=== PATIENT | male | born 1985 | race Caucasian/White ===

== ENCOUNTER 2018-01-24 04:07 | Inpatient (IN) ==
[2018-01-24] MEDS ORDERED: Aluminum/Magnesium/Simethacone Susp 30 ML UDC PO PRN (11:33)
[2018-01-24] MEDS ORDERED: Bisacodyl 10 MG Supp RECTAL PRN (11:33)
[2018-01-24] MEDS ORDERED: Acetaminophen 325 MG Tablet PO PRN (11:34)
[2018-01-24] MEDS ORDERED: Senna/Docusate Sodium 8.6/50 MG Tablet PO PRN (11:34)
--- NOTE | 2018-01-24 11:39 | P.HPPSY ---
Provisional Diagnosis Admission Date: January 24, 2018 08:16 [place] I.: Adjustment disorder with depressed mood Competence Certification of Person's Competence To Provide Express and Informed Consent I have personally examined Kenrick Bermudez, a person being served at [facility] on, January 24, 2018 1138. Express and informed consent means consent voluntarily given in writing, by a competent person, after sufficient explanation and disclosure of the subject matter involved to enable the person to make a knowing and willful decision without any element of force, fraud, deceit, duress, or other form of constraint or coercion. This person is 18 years of age or older, is not now known to be incompetent to consent to treatment with a guardian advocate, and does not have a health care surrogate or proxy currently making medical treatment decisions. I have found this person to be one of the following: [xxx] Competent to provide express and informed consent, as defined above, for voluntary admission to this facility and is competent to provide express and informed consent for treatment. He/she has the consistent capacity to make well reasoned, willful, and knowing decisions concerning his or her medical or mental health treatment. The person fully and consistently understands the purpose of the admission for examination/placement and is fully capable of personally exercising all rights assured under [place] Incompetent to provide express and informed consent to voluntary admission, and this is incompetent to provide express and informed consent to treatment. The person must be transferred to involuntary status and a petition for a guardian advocate filed with the Circuit Court. [] Refusing to provide express and informed consent to voluntary admission but is competent to provide express and informed consent for treatment. The person must be discharged or transferred to involuntary status. Form shall be completed within 24 hours of a person's arrival at the receiving facility and filed in the clinical record of each person: 1. Admitted on a voluntary basis 2. Permitted to provide express and informed consent to his/her own treatment 3. Allowed to transfer from involuntary to voluntary status 4. Prior to permitting a person to consent to his or her own treatment after having been previously found incompetent to consent to treatment. History of Present Illness Capacity: Has capacity History of Present Illness: Patient is a 32-year-old man, single, homeless, unemployed, currently staying with his parents, with a past psychiatric history of depression, ADD as per chart, one previous psychiatric admission in 2006, 1 previous suicide attempt, with a polysubstance use history, who presented to the ED at a local facility due to suicidal ideations with plan to shoot himself with a pellet rifle which patient was put under Brasher act and transferred to this facility for further evaluation and management. Patient was found in blade on unit noted B, cooperative, seen with nurse. Patient states that a few days ago he had contemplated suicide which she had mentioned to his mother and had been taken to the local hospital as stated above. Patient reports having had suicide ideation for the past 2 months, but reports having been depressed for years and has been worsening "in waves". Patient reports decreased appetite, sleep and concentration with no change in energy, denying any feelings of guilt but is feeling helpless and hopeless. Patient also mentions having auditory hallucination 2 days ago and at times making bizarre statements such as "I believe in telepathy". Patient denies any visual hallucinations and denies any paranoid delusions and continues with suicide ideations at this time. Patient reports feels like a burden to his parents, states that his stressors include not having a job, not having a place to live. Patient noted be tearful toward end of interview stating he wanted to get his life back in order and feel better. Family psychiatric history: Patient reports uncle committed suicide Past psychiatric history: Patient unclear of diagnoses but as per chart history of depression and ADD. Reports one previous psychiatric admission in 2006 for suicidal ideation, reports one remote suicide attempt as a teenager, no current outpatient provider, reports history of self-injurious behavior via burning as a teenager, denies any history of abuse. Past medical history: Denies Allergies: Jamar Substance use history: Recently quit tobacco use, alcohol use is rarely last time being months ago, patient also reports rarely using marijuana use but has a polysubstance use history of ecstasy, amphetamines and other illegal drugs which he has stopped using over a year ago. Social history: Homeless, single, no children, unemployed, currently staying with his parents since his unemployment 1 month ago. Patient reports having been in less than 6 months ago. No legal history, has education is 10th grade but did achieve his GED. Patient was born in [place] and raised in both [place] and [place]. - Inpatient Certification I certify that the inpatient services were ordered in accordance with Medicare regulations governing the order. This includes certification that hospital inpatient services are reasonable and necessary and in the case of services not specified as inpatient-only under 42 CFR 419.22(n), that they are appropriately provided as inpatient services in accordance to with the 2-midnight benchmark under 43 CFR 412.3(e) I certify that inpatient psychiatric hospital services are medically necessary. Evaluation and treatment and/or diagnostic testing are expected to improve the patient's condition. The patient needs on a daily basis, active treatment furnished directly by or requiring the supervision of inpatient psychiatric facility personnel. Estimated Total Length of Stay (Days): 7 Plans for Post Hospital Care: Not yet determined Review of Systems All other systems reviewed negative except as stated in HPI PMFSH - History History Provided By: Patient, Medical Record Quality Measures - Psychiatric History Psychological trauma history: Denies Violence risk to others in the last 6 months: Low Violence risk to self in the last 6 months: Elevated - Substance Abuse History Drug or alcohol use in the past 12 months: See HPI - Patient Strengths Patient's strengths (minimum of 2): Verbal and communicative Medications and Allergies Active Medications: Active Medications Acetaminophen (Tylenol) 650 mg PO Q4H PRN PRN Reason: Pain 1-5 or Temp >101F Al Hydrox/Mg Hydrox/Simethicone (Mag-Al Plus Susp Liq) 30 ml PO Q6H PRN PRN Reason: DYSPEPSIA Al Hydroxide/Mg Hydroxide (Milk Of Magnesia Liq) 30 ml PO Q12H PRN PRN Reason: Mild Constipation Bisacodyl (Dulcolax Supp) 10 mg RECTAL DAILY PRN PRN Reason: SEVERE CONSITIPATION Diphenhydramine HCl (Benadryl) 50 mg PO HS PRN PRN Reason: INSMONIA Diphenhydramine HCl (Benadryl Inj) 50 mg IM HS PRN PRN Reason: INSOMNIA Hydroxyzine HCl (Atarax) 50 mg PO Q6H PRN PRN Reason: ANXIETY Lactulose (Lactulose Liq) 30 ml PO DAILY PRN PRN Reason: SEVERE CONSITIPATION Nicotine Polacrilex (Nicotine Gum) 4 mg CHEW Q2H PRN PRN Reason: CRAVING Senna/Docusate Sodium (Coni-Colace) 1 tab PO BID PRN PRN Reason: CONSTIPATION Sennosides (Senokot) 17.2 mg PO Q12H PRN PRN Reason: Moderate Constipation Allergies Allergy/AdvReac Type Severity Reaction Status Date / Time ziprasidone [From Geodon] Allergy Seizures Verified 01/24/18 08:30 Exam Vital signs: Vital Signs 01/24/18 08:37 Temperature 98 F Blood Pressure 118/83 Intake & Output 01/23/18 01/24/18 01/24/18 18:59 06:59 18:59 Weight 72.1 kg Other: Weight On Admission 72.1 kg - Constitutional no acute distress, cooperative Mental Status Examination Appearance: Appropriate Consciousness: Alert Orientation: Person, Place, Date/Time Motor Activity: Normal gait Speech: Unremarkable Language: Adequate Fund of Knowledge: Inadequate Attention and Concentration: Adequate Memory: Unremarkable Mood: Sad Affect: Sad Thought Process & Associations: Intact, Linear Thought Content: Hallucinations Hallucination Type: Auditory Delusion Type: None Suicidal Ideation: Yes Suicidal Plan: No Suicidal Intention: No Homicidal Ideation: No Homicidal Plan: No Homicidal Intention: No Insight: Fair Judgment: Impulsive Assessment and Plan - Assessment (1) Adjustment disorder with depressed mood Code(s): F43.21 - Adjustment disorder with depressed mood Status: Acute - Plan Plan: Estimated LOS: [] days Patient is a 32-year-old man who carries a diagnosis of depression, polysubstance use disorder, with previous psychiatric admission, one remote suicide attempt, currently endorsing depressive symptoms along with suicide ideation with plan to shoot himself with a pellet rifle in the context of depressive symptoms and psychosocial stressors which patient requires inpatient psychiatric level care for stabilization for safety. Patient has capacity to consent for treatment and will be admitted under voluntary admission at this time. Patient to start quetiapine 25 g p.o. twice daily with upper titration for stabilization. We will monitor mood and behavior. Social work intervention for psychosocial assessment. Discharge planning in progress. Justification for Continued Inpatient Stay: At risk of further decompensation a low level of care.
[2018-01-24] MEDS: QUEtiapine 25 MG Tablet PO SCH ×2 (13:34→20:23)
[2018-01-25 10:38] LABS: Alanine Aminotransferase 14 U/L (12-78); Albumin 3.9 g/dL (3.4-5.0); Anion Gap 0 meq/L (5-15); Aspartate Aminotransferase 14 U/L (15-37); Blood Urea Nitrogen 12 mg/dL (7-18); Calcium 9.3 mg/dL (8.5-10.1); Carbon Dioxide 30.7 meq/L (21.0-32.0); Chloride 103 meq/L (98-107); Cholesterol 271 mg/dL (120-200); Glomerular Filtration Rate 75 mL/min (>89); Glucose,Random 59 mg/dL (74-106); Potassium 4.5 meq/L (3.5-5.1); Sodium 134 meq/L (136-145); Triglycerides 328 mg/dL (42-150)
[2018-01-25 10:40] LABS: Alkaline Phosphatase 93 U/L (45-117); Chol/HDL Ratio 8.41 Ratio; HDL Cholesterol 32.2 mg/dL (40.0-60.0); LDL Cholesterol,Calculated 173 mg/dL (0-99)
[2018-01-25] MEDS: QUEtiapine 25 MG Tablet PO SCH ×2 (10:55→20:24)
--- NOTE | 2018-01-25 12:25 | ECG ---
Date Performed: 01/25/2018 Time Performed: 11:04:58 PTAGE: 32 years EKG: Sinus rhythm NORMAL ECG NO PREVIOUS TRACING DOCTOR: Shabnam James Interpretating Date/Time 01/25/2018 12:23:51
[2018-01-25 13:12] LABS: Hemoglobin A1c 5.8 % (4.3-6.0)
--- NOTE | 2018-01-25 18:19 | P.PNPSY ---
Subjective Remarks: Reviewed electronic medical records and discussed case with staff. Follow-up was conducted in the day room with Amee DESIR present. His nurse reports that he has been compliant with his medications and has had no B behavioral disturbances. The patient says that he has been sleeping well and has a good appetite. He said his mood varies and reports that he is "anxious about my future". Mental Status Examination Appearance: Appropriate Consciousness: Alert Orientation: Person, Place, Date/Time Motor Activity: Normal gait Speech: Unremarkable Language: Adequate Fund of Knowledge: Inadequate Attention and Concentration: Adequate Memory: Unremarkable Mood: Sad Affect: Sad Thought Process & Associations: Intact, Linear Thought Content: Hallucinations Hallucination Type: Auditory Delusion Type: None Suicidal Ideation: Yes Suicidal Plan: No Suicidal Intention: No Homicidal Ideation: No Homicidal Plan: No Homicidal Intention: No Insight: Fair Judgment: Impulsive Assessment and Plan - Assessment (1) Adjustment disorder with depressed mood Code(s): F43.21 - Adjustment disorder with depressed mood Status: Acute - Plan Plan: Patient will be reevaluated tomorrow by the attending psychiatrist. Continue with current treatment plan. Justification for Continued Inpatient Stay: Moving this patient to a less restrictive environment would likely result in decompensation.
--- NOTE | 2018-01-25 18:40 | P.PNPSY ---
Mental Status Examination Appearance: Appropriate Consciousness: Alert Orientation: Person, Place, Date/Time Motor Activity: Normal gait Speech: Unremarkable Language: Adequate Fund of Knowledge: Inadequate Attention and Concentration: Adequate Memory: Unremarkable Mood: Sad Affect: Sad Thought Process & Associations: Intact, Linear Thought Content: Hallucinations Hallucination Type: Auditory Delusion Type: None Suicidal Ideation: Yes Suicidal Plan: No Suicidal Intention: No Homicidal Ideation: No Homicidal Plan: No Homicidal Intention: No Insight: Fair Judgment: Impulsive Assessment and Plan - Assessment (1) Adjustment disorder with depressed mood Code(s): F43.21 - Adjustment disorder with depressed mood Status: Acute
[2018-01-26] MEDS: QUEtiapine 25 MG Tablet PO SCH ×2 (08:18→20:30)
--- NOTE | 2018-01-26 10:18 | P.PNPSY ---
Subjective Remarks: Patient seen and examined with nurse. Chart reviewed. Patient transferred from [facility] with suicidal ideation with plan to shoot himself. Documentation from outside hospital reviewed. On my examination today , the patient says that he has been having thoughts of shooting himself with his pellet gun for the last week or so. He says that he has been feeling depressed secondary to loss of his job and having to move back in with his parents. He has had suicidal ideation in the past. He served in the [employer] for a little over 5 months but received a general discharge after a hip fracture was discovered. This is a source of some consternation from him as he reportedly does not receive any veterans benefits as he was not in the [employer] for at least 6 months. He denies any suicidal ideation presently but remains depressed. He denies any audiovisual hallucinations. He does articulate believes in telepathy, which belief he also articulated to the nursing staff. No reported side effects from medications. No physical complaints. Vital Signs Temp Pulse Resp BP Pulse Ox 01/26/18 15:34 98.1 F 114 H 18 115/64 100 01/26/18 05:58 97.6 F 85 16 97/66 L 98 01/25/18 18:17 97.1 F L 109 H 17 108/72 98 Laboratory Results - last 72 hr 01/25/18 01/25/18 09:00 09:00 Sodium 134 L Potassium 4.5 Chloride 103 Carbon Dioxide 30.7 Anion Gap 0 L BUN 12 Creatinine 1.13 Estimated GFR 75 L Random Glucose 59 L Hemoglobin A1c 5.8 Calcium 9.3 Total Bilirubin 0.4 AST 14 L ALT 14 Alkaline Phosphatase 93 Total Protein 8.0 Albumin 3.9 Triglycerides 328 H Cholesterol 271 H LDL Cholesterol, Calc 173 H HDL Cholesterol 32.2 L Cholesterol/HDL Ratio 8.41 Labs from outside hospital reviewed. Hyponatremia noted at outside hospital has improved. Patient also had a mild leukocytosis. QTc was prolonged at outside hospital but EKG obtained here at [place] reveals normal sinus rhythm with a QTC of 421 ms, not prolonged. Toxicology at outside hospital was negative. Review of Systems All other systems reviewed negative except as stated in HPI Mental Status Examination Appearance: Appropriate Consciousness: Alert Orientation: Person, Place, Date/Time Motor Activity: Normal gait, Other (No motor abnormalities noted.) Speech: Unremarkable Language: Adequate Fund of Knowledge: Inadequate Attention and Concentration: Adequate Memory: Unremarkable Mood: Sad Affect: Sad Thought Process & Associations: Intact, Linear Thought Content: Bizarre thinking Hallucination Type: None Delusion Type: None Suicidal Ideation: No Suicidal Plan: No Suicidal Intention: No Homicidal Ideation: No Homicidal Plan: No Homicidal Intention: No Insight: Fair Judgment: Impulsive Assessment and Plan - Assessment (1) Adjustment disorder with depressed mood Code(s): F43.21 - Adjustment disorder with depressed mood Status: Acute - Plan Plan: Titrate Seroquel to 25 mg in the morning and 50 mg at bedtime for mood stabilization. I will check a CBC to follow up on the patient's leukocytosis at outside hospital. Continue to monitor on the inpatient unit. Counselor to evaluate and call for collateral. Continue other medications and care as ordered. I did notify the patient of my absence on Friday and Friday of this week with planned return . Justification for Continued Inpatient Stay: Medication changes. Monitoring for impairment in safety. Discharge Planning: Pending psychiatric stabilization. Request Healthcare Surrogate/Guardian Advocate?: No
[2018-01-26 17:20] LABS: Baso % (Auto) 0.6 % (0.0-2.0); Eos # (Auto) 0.4 th/mm3 (0.0-0.4); Eos % (Auto) 4.7 % (0.0-4.0); Hematocrit 43.3 % (39.0-51.0); Hemoglobin 14.6 gm/dL (13.0-17.0); Lymph # (Auto) 3.3 th/mm3 (1.0-4.8); Lymph % (Auto) 44.2 % (9.0-44.0); Mean Corpuscular HGB Conc 33.7 % (32.0-36.0); Mean Corpuscular Hemoglobin 29.7 pg (27.0-34.0); Mean Corpuscular Volume 88.1 fL (80.0-100.0); Mean Platelet Volume 9.1 fL (7.0-11.0); Mono # (Auto) 0.5 th/mm3 (0.0-0.9); Mono % (Auto) 6.1 % (0.0-8.0); Neut # (Auto) 3.4 th/mm3 (1.8-7.7); Neut % (Auto) 44.4 % (16.0-70.0); Platelet Count 196 th/mm3 (150-450); Red Blood Count 4.91 mil/mm3 (4.50-5.90); Red Cell Distribution Width 15.1 % (11.6-17.2); White Blood Count 7.6 th/mm3 (4.0-11.0)
[2018-01-27] MEDS: QUEtiapine 25 MG Tablet PO SCH ×2 (08:54→20:30)
--- NOTE | 2018-01-27 17:18 | P.PNPSY ---
Subjective Remarks: Reviewed electronic medical records and discussed case with staff. Follow-up was conducted in the hallway with THANG Saleem present. Patient reports that he sleeping and eating well. He reports that his mood is elevated. He denies any current suicidal or homicidal ideation. He still expresses some anxiety over thinking about "getting my life back on track". Mental Status Examination Appearance: Appropriate Consciousness: Alert Orientation: Person, Place, Date/Time Motor Activity: Normal gait, Other (No motor abnormalities noted.) Speech: Unremarkable Language: Adequate Fund of Knowledge: Inadequate Attention and Concentration: Adequate Memory: Unremarkable Mood: Sad Affect: Sad Thought Process & Associations: Intact, Linear Thought Content: Bizarre thinking Hallucination Type: None Delusion Type: None Suicidal Ideation: No Suicidal Plan: No Suicidal Intention: No Homicidal Ideation: No Homicidal Plan: No Homicidal Intention: No Insight: Fair Judgment: Impulsive Assessment and Plan - Assessment (1) Adjustment disorder with depressed mood Code(s): F43.21 - Adjustment disorder with depressed mood Status: Acute - Plan Plan: Patient will be reevaluated by the attending psychiatrist. Continue with current treatment plan. Justification for Continued Inpatient Stay: Moving this patient to a less restrictive environment would likely result in decompensation. Request Healthcare Surrogate/Guardian Advocate?: No
[2018-01-28] MEDS: QUEtiapine 25 MG Tablet PO SCH ×2 (08:04→21:09)
--- NOTE | 2018-01-28 13:22 | P.PNPSY ---
Subjective Remarks: Patient seen today in his room with nurse Reggie, chart reviewed, patient compliant medicine. Patient alert oriented calm cooperative today and just take a shower. Today denies suicidality homicidality voice or visions. Feels medication is working. States he may have a job interview this weekend. He hopes he can be discharged soon. Any questions how he will be getting back to his own home area which is about 4 hours from here. We will have counselor work with him related to that Review of Systems All other systems reviewed negative except as stated in HPI Mental Status Examination Appearance: Appropriate Consciousness: Alert Orientation: Person, Place, Date/Time Motor Activity: Normal gait, Other (No motor abnormalities noted.) Speech: Unremarkable Language: Adequate Fund of Knowledge: Inadequate Attention and Concentration: Adequate Memory: Unremarkable Mood: Sad Affect: Other (Slight decreased range and intensity) Thought Process & Associations: Intact, Linear Thought Content: Bizarre thinking (Improving) Hallucination Type: None Delusion Type: None Suicidal Ideation: No Suicidal Plan: No Suicidal Intention: No Homicidal Ideation: No Homicidal Plan: No Homicidal Intention: No Insight: Fair Judgment: Impulsive Assessment and Plan - Assessment (1) Adjustment disorder with depressed mood Code(s): F43.21 - Adjustment disorder with depressed mood Status: Acute - Plan Plan: Patient's mood is improving. He shows no signs of psychosis at this time. Compliant medication. Justification for Continued Inpatient Stay: At this time patient would decompensate a place to a lower level of care Discharge Planning: To be determined probably home with family Request Healthcare Surrogate/Guardian Advocate?: No
[2018-01-28 20:29] VITALS: RESP 18
[2018-01-29 05:24] VITALS: O2SAT 97
[2018-01-29] MEDS: QUEtiapine 25 MG Tablet PO SCH ×2 (09:33→21:32)
--- NOTE | 2018-01-29 13:11 | P.DSPSY ---
Psychiatry Discharge Summary Advance Directives: No - Admission Admission Date: January 24, 2018 08:16 Brief History: Patient is a 32-year-old man, single, homeless, unemployed, currently staying with his parents, with a past psychiatric history of depression, ADD as per chart, one previous psychiatric admission in 2006, 1 previous suicide attempt, with a polysubstance use history, who presented to the ED at a local facility due to suicidal ideations with plan to shoot himself with a pellet rifle which patient was put under Bras[place] act and transferred to this facility for further evaluation and management. Patient was found in blade on unit noted B, cooperative, seen with nurse. Patient states that a few days ago he had contemplated suicide which she had mentioned to his mother and had been taken to the local hospital as stated above. Patient reports having had suicide ideation for the past 2 months, but reports having been depressed for years and has been worsening "in waves". Patient reports decreased appetite, sleep and concentration with no change in energy, denying any feelings of guilt but is feeling helpless and hopeless. Patient also mentions having auditory hallucination 2 days ago and at times making bizarre statements such as "I believe in telepathy". Patient denies any visual hallucinations and denies any paranoid delusions and continues with suicide ideations at this time. Patient reports feels like a burden to his parents, states that his stressors include not having a job, not having a place to live. Patient noted be tearful toward end of interview stating he wanted to get his life back in order and feel better. Family psychiatric history: Patient reports uncle committed suicide Past psychiatric history: Patient unclear of diagnoses but as per chart history of depression and ADD. Reports one previous psychiatric admission in 2006 for suicidal ideation, reports one remote suicide attempt as a teenager, no current outpatient provider, reports history of self-injurious behavior via burning as a teenager, denies any history of abuse. Past medical history: Denies Allergies: Jamar Substance use history: Recently quit tobacco use, alcohol use is rarely last time being months ago, patient also reports rarely using marijuana use but has a polysubstance use history of ecstasy, amphetamines and other illegal drugs which he has stopped using over a year ago. Social history: Homeless, single, no children, unemployed, currently staying with his parents since his unemployment 1 month ago. Patient reports having been in less than 6 months ago. No legal history, has education is 10th grade but did achieve his GED. Patient was born in [place] and raised in both [place] and [place]. Tobacco Use In Past 30 Days: Yes How Often Do You Have a Drink Containing Alcohol: Never Mental Status Examination Appearance: Appropriate Consciousness: Alert Orientation: Person, Place, Date/Time Motor Activity: Normal gait, Other (No motor abnormalities noted.) Speech: Unremarkable Language: Adequate Fund of Knowledge: Inadequate Attention and Concentration: Adequate Memory: Unremarkable Mood: Sad Affect: Other (Slight decreased range and intensity) Thought Process & Associations: Intact, Linear Thought Content: Bizarre thinking (Improving) Hallucination Type: None Delusion Type: None Suicidal Ideation: No Suicidal Plan: No Suicidal Intention: No Homicidal Ideation: No Homicidal Plan: No Homicidal Intention: No Insight: Fair Judgment: Impulsive Discharge/Advance Care Plan - Results Vital Signs: Last Vital Signs Temp 98 F 01/29/18 05:24 Pulse 80 01/29/18 05:24 Resp 18 01/29/18 05:24 BP 104/59 L 01/29/18 05:24 Pulse Ox 97 01/29/18 05:24 Lab Results: Laboratory Results Hemoglobin A1c 5.8 % (4.3-6.0) 01/25/18 09:00 Triglycerides 328 mg/dL (42-150) H 01/25/18 09:00 Cholesterol 271 mg/dL (120-200) H 01/25/18 09:00 LDL Cholesterol, Calc 173 mg/dL (0-99) H 01/25/18 09:00 HDL Cholesterol 32.2 mg/dL (40.0-60.0) L 01/25/18 09:00 - Discharge Care Plan Goals to Promote Your Health: * To prevent worsening of your condition and complications * To maintain your health at the optimal level Directions to Meet Your Goals: Take your medications as prescribed Follow your dietary instruction Follow activity as directed Keep your appointments as scheduled Take your immunizations and boosters as scheduled If your symptoms worsen call your PCP, if no PCP go to Urgent Care Center or Emergency Room For 11/11 questions related to your inpatient stay or results of tests pending at discharge, please contact Dr. Félix Medley MD at [phone] Smoking is Dangerous to Your Health. Avoid second hand smoking
--- NOTE | 2018-01-29 14:36 | P.PNPSY ---
Subjective Remarks: Patient seen and examined. Chart reviewed. Case discussed with nursing staff. No behavioral issues noted overnight. Case discussed with counselor who has confirmed that patient's mother has secured the home environment including the firearm. On my examination today, the patient says that he is feeling much improved. He would like to be discharged today or if not today, tomorrow. He denies any suicidal or homicidal ideation. Denies any audiovisual hallucinations. Denies any command auditory hallucinations. Mood is improved. Sleep is improved. He denies side effects from medications. No physical complaints. Vital Signs Temp Pulse Resp BP Pulse Ox 01/29/18 05:24 98 F 80 18 104/59 L 97 01/28/18 18:00 97.5 F L 92 H 18 126/91 H 99 Intake and Output 01/29/18 01/29/18 01/29/18 06:59 14:59 22:59 Other: Weight 97.2 kg Labs reviewed. No new labs. Review of Systems All other systems reviewed negative except as stated in HPI Mental Status Examination Appearance: Appropriate Consciousness: Alert Orientation: x4 Motor Activity: Normal gait, Other (No abnormal motor movements noted) Speech: Unremarkable Language: Adequate Fund of Knowledge: Adequate Attention and Concentration: Adequate Memory: Unremarkable Mood: Appropriate Affect: Appropriate Thought Process & Associations: Intact, Logical, Linear Thought Content: Appropriate Hallucination Type: None Delusion Type: None Suicidal Ideation: No Suicidal Plan: No Suicidal Intention: No Homicidal Ideation: No Homicidal Plan: No Homicidal Intention: No Mental Status Exam Remarks: Insight and judgment are fair Assessment and Plan - Assessment (1) Adjustment disorder with depressed mood Code(s): F43.21 - Adjustment disorder with depressed mood Status: Acute - Plan Plan: Psychiatric condition improved. Continue Seroquel as ordered. Continue to monitor on the inpatient unit. Continue other medications and care as ordered. Justification for Continued Inpatient Stay: Final discharge planning. Discharge Planning: Anticipate discharge tomorrow morning. Because of the distance from which the patient was transferred, counselor informs me we are unable to transport the patient back to his home county today. Transportation has been arranged for tomorrow morning. Request Healthcare Surrogate/Guardian Advocate?: No
[2018-01-30 06:14] VITALS: BP 109/56; PULSE 81; TEMP 97.5
--- NOTE | 2018-01-30 08:31 | P.DSPSY ---
Psychiatry Discharge Summary Inpatient Psychiatric care?: Yes Advance Directives: No Mental Health Advance Directive: No Health Care Proxy: No - Admission Admission Date: January 24, 2018 08:16 - Admission Diagnosis (1) Adjustment disorder with depressed mood Code(s): F43.21 - Adjustment disorder with depressed mood Brief History: Patient is a 32-year-old man, single, homeless, unemployed, currently staying with his parents, with a past psychiatric history of depression, ADD as per chart, one previous psychiatric admission in 2006, 1 previous suicide attempt, with a polysubstance use history, who presented to the ED at a local facility due to suicidal ideations with plan to shoot himself with a pellet rifle which patient was put under Barsher act and transferred to this facility for further evaluation and management. Patient was found in blade on unit noted B, cooperative, seen with nurse. Patient states that a few days ago he had contemplated suicide which she had mentioned to his mother and had been taken to the local hospital as stated above. Patient reports having had suicide ideation for the past 2 months, but reports having been depressed for years and has been worsening "in waves". Patient reports decreased appetite, sleep and concentration with no change in energy, denying any feelings of guilt but is feeling helpless and hopeless. Patient also mentions having auditory hallucination 2 days ago and at times making bizarre statements such as "I believe in telepathy". Patient denies any visual hallucinations and denies any paranoid delusions and continues with suicide ideations at this time. Patient reports feels like a burden to his parents, states that his stressors include not having a job, not having a place to live. Patient noted be tearful toward end of interview stating he wanted to get his life back in order and feel better. Family psychiatric history: Patient reports uncle committed suicide Tobacco Use In Past 30 Days: Yes How Often Do You Have a Drink Containing Alcohol: Never Hospital Course: Patient was admitted to a locked, inpatient psychiatric unit. Appropriate precautions were in place throughout patient's hospital stay. Patient was seen and examined on the unit by psychiatry and also visited by counselor. Psychotropic medications were adjusted. Patient tolerated medication changes well without side effects. Patient had improvement in presenting psychiatric symptomatology during the course of his hospital stay. There was no evidence of any suicidality or homicidality while the patient was on the inpatient unit. There was no evidence of self-care deficit. Collateral information was obtained by the counselor from the patient's mother, and patient's mother has secured the home environment of potential means of harm to self/others per the counselor. On the day of discharge: Patient seen and examined. Chart reviewed. Case discussed with nursing staff. No behavioral issues overnight. On my examination today, the patient is requesting discharge from the inpatient psychiatric unit today. He tells me that he "feel[s] great." I can elicit no depressive or hypomanic/manic symptoms. He denies any suicidal or homicidal ideation, intent or plan. He is future oriented and wants to look for work. He is also considering applying for disability. He denies any audiovisual hallucinations. Denies any command auditory hallucinations to hurt self/ others. I can elicit no delusional beliefs. He denies any side effects from medications. No physical complaints. Suicide and violence risk assessment on day of discharge both suggest lower imminent risk from mental illness, and the patient's level of function is adequate for outpatient care. Patient will be discharged today with mental health follow-up referral by counselor. Patient is also to follow up with primary care. I have counseled the patient to return to the psychiatric emergency room for any concerning symptoms as part of a general safety plan. - Discharge Discharge Date: 01/30/18 - Discharge Diagnosis (1) Adjustment disorder with depressed mood Diagnosis: Principal Code(s): F43.21 - Adjustment disorder with depressed mood Status: Resolved Discharge Disposition: Home - Discharge Instructions Discharge Diet: Regular Diet Activities You Can Perform: Weight Bearing As Tolerat - Discharge Time <= 30 minutes Mental Status Examination Appearance: Appropriate Consciousness: Alert Orientation: x4 Motor Activity: Normal gait, Other (No motor abnormalities noted) Speech: Unremarkable Language: Adequate Fund of Knowledge: Adequate Attention and Concentration: Adequate Memory: Unremarkable Mood: Appropriate Affect: Appropriate, Euthymic Thought Process & Associations: Intact, Logical, Goal directed, Linear Thought Content: Appropriate Hallucination Type: None Delusion Type: None Suicidal Ideation: No Suicidal Plan: No Suicidal Intention: No Homicidal Ideation: No Homicidal Plan: No Homicidal Intention: No Mental Status Exam Remarks: Insight and judgment are fair. Discharge/Advance Care Plan - Results Vital Signs: Last Vital Signs Temp 97.5 F L 01/30/18 06:00 Pulse 81 01/30/18 06:00 Resp 18 01/30/18 06:00 BP 109/56 L 01/30/18 06:00 Pulse Ox 97 01/30/18 06:00 Lab Results: Laboratory Results Hemoglobin A1c 5.8 % (4.3-6.0) 01/25/18 09:00 Triglycerides 328 mg/dL (42-150) H 01/25/18 09:00 Cholesterol 271 mg/dL (120-200) H 01/25/18 09:00 LDL Cholesterol, Calc 173 mg/dL (0-99) H 01/25/18 09:00 HDL Cholesterol 32.2 mg/dL (40.0-60.0) L 01/25/18 09:00 Summary of Procedures: None done Pending Results: None - Medications Number of antipsychotic medications at discharge: 1 - Discharge Care Plan Goals to Promote Your Health: * To prevent worsening of your condition and complications * To maintain your health at the optimal level Directions to Meet Your Goals: Take your medications as prescribed Follow your dietary instruction Follow activity as directed Keep your appointments as scheduled Take your immunizations and boosters as scheduled If your symptoms worsen call your PCP, if no PCP go to Urgent Care Center or Emergency Room For 11/11 questions related to your inpatient stay or results of tests pending at discharge, please contact Dr. Félix Medley MD at [phone] Smoking is Dangerous to Your Health. Avoid second hand smoking
[2018-01-30] MEDS: QUEtiapine 25 MG Tablet PO SCH (09:27)
== END 2018-01-30 09:35 | disposition home or self-care (01) ==
LOC: H270 08:16 → H260 01-26 21:03
PROVIDERS: ADMIT Psychiatry & Neurology Psychiatry; ATTEND Psychiatry & Neurology Psychiatry

== ENCOUNTER 2018-01-31 20:53 | Inpatient (IN) ==
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
[2018-01-31 21:50] LABS: Amphetamine Screen,Urine Neg (Neg); Barbiturate Screen,Urine Neg (Neg); Cannabinoid Screen,Urine Neg (Neg); Cocaine Screen,Urine Neg (Neg)
[2018-01-31 21:51] LABS: Opiate Screen,Urine Neg (Neg)
[2018-01-31] MEDS ORDERED: QUEtiapine 25 MG Tablet PO ONE (23:13)
[2018-02-01] MEDS ORDERED: LORazepam 1 MG Tablet PO STA (15:18)
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
[2018-02-01] MEDS ORDERED: QUEtiapine 25 MG Tablet PO SCH (21:00)
[2018-02-02] MEDS ORDERED: Aluminum/Magnesium/Simethacone Susp 30 ML UDC PO PRN (08:27)
[2018-02-02] MEDS ORDERED: Bisacodyl 10 MG Supp RECTAL PRN (08:27)
[2018-02-02] MEDS: QUEtiapine 25 MG Tablet PO SCH ×2 (11:40→20:55)
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
[2018-02-02] MEDS: Senna/Docusate Sodium 8.6/50 MG Tablet PO SCH ×2 (14:07→20:56)
[2018-02-03 07:48] LABS: Anion Gap 7 meq/L (5-15); Blood Urea Nitrogen 11 mg/dL (7-18); Calcium 9.1 mg/dL (8.5-10.1); Carbon Dioxide 27.1 meq/L (21.0-32.0); Chloride 107 meq/L (98-107); Glomerular Filtration Rate Greater Than 89 mL/min (>89); Glucose,Random 92 mg/dL (74-106); Potassium 4.1 meq/L (3.5-5.1); Sodium 141 meq/L (136-145)
[2018-02-03 07:49] LABS: Triglycerides 300 mg/dL (42-150)
[2018-02-03 07:55] LABS: Chol/HDL Ratio 7.82 Ratio; Cholesterol 245 mg/dL (120-200); HDL Cholesterol 31.3 mg/dL (40.0-60.0); LDL Cholesterol,Calculated 154 mg/dL (0-99)
[2018-02-03] MEDS: Senna/Docusate Sodium 8.6/50 MG Tablet PO SCH (08:20)
[2018-02-03] MEDS: QUEtiapine 25 MG Tablet PO SCH ×2 (08:20→21:21)
[2018-02-03] MEDS ORDERED: Aluminum/Magnesium/Simethacone Susp 30 ML UDC PO PRN (12:58)
[2018-02-03] MEDS ORDERED: Acetaminophen 325 MG Tablet PO PRN (13:02)
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
[2018-02-03 18:29] LABS: Hemoglobin A1c 5.6 % (4.3-6.0)
[2018-02-04] MEDS: QUEtiapine 25 MG Tablet PO SCH ×2 (08:52→21:40)
--- NOTE | 2018-02-04 14:06 | P.PNPSY ---
Subjective Chief Complaint: Depression and SI Remarks: Patient seen and chu with nurse Yoselin, chart reviewed, patient compliant medication patient somewhat calmer more focused today he denies suicidality homicidality voices or visions. Says he would like to return home with his mother. It appears that last discharge patient was unable to get [place] prescription [place] We will consider discharge tomorrow or Friday though at this time we will offer him a month's supply of his medications to help the transition back to the community Review of Systems All other systems reviewed negative except as stated in HPI Mental Status Examination Appearance: Appropriate Consciousness: Alert Orientation: x4 Motor Activity: Normal gait Speech: Rapid Language: Adequate Fund of Knowledge: Inadequate Attention and Concentration: Adequate (Fair) Memory: Unremarkable (Fair) Mood: Sad, Anxious, Irritable Affect: Sad, Other (Slight increased range and intensity) Thought Process & Associations: Linear Thought Content: Other (Somewhat disorganized) Hallucination Type: None Delusion Type: None Suicidal Ideation: Yes (Patient said he would not take the suicide pill) Suicidal Plan: No Suicidal Intention: No Homicidal Ideation: No Homicidal Plan: No Homicidal Intention: No Insight: Poor Judgment: Poor Assessment and Plan - Assessment (1) Adjustment disorder with depressed mood Code(s): F43.21 - Adjustment disorder with depressed mood Status: Resolved - Plan Plan: Patient somewhat calmer and focused the paranoia is diminished he is compliant with his medications. Consider discharge in 1-2 days to return home. If possible was supplied with a month's supply of his medicine Justification for Continued Inpatient Stay: At this time patient would decompensate a place to a lower level of care Request Healthcare Surrogate/Guardian Advocate?: No
[2018-02-05 06:06] VITALS: BP 105/63; PULSE 83; RESP 16; TEMP 97.3; O2SAT 99
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
[2018-02-05] MEDS: QUEtiapine 25 MG Tablet PO SCH (09:25)
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
== END 2018-02-05 15:35 | disposition home or self-care (01) ==
LOC: NEPJ 20:53 → NEDA 02-02 10:09 → H260 02-02 10:25
PROVIDERS: ADMIT Psychiatry & Neurology Psychiatry; ATTEND Psychiatry & Neurology Psychiatry